=== PATIENT | female | born 1970 | race Caucasian/White ===

== ENCOUNTER → 2016-05-24 | Outpatient (CLI) | payer OTHER ==
[~2016-05-24] MED LIST: MECL1TAB42 PO; OXYC-57 PO
--- NOTE | 2016-05-24 12:37 | MAMMOGRAPHY REPORT ---
BILATERAL DIGITAL DIAGNOSTIC MAMMOGRAM TOMOSYNTHESIS WITH CAD AND TARGETED LEFT ULTRASOUND: 7 CLINICAL HISTORY: Interval follow-up of left breast masses. TECHNIQUE: Breast tomosynthesis in addition to standard 2D mammography was performed. Current study was also evaluated with a Computer Aided Detection (CAD) system. Bilateral CC and MLO 2-D and dustin synthesis images were obtained. COMPARISON: Comparison is made to exams dated: 11/22/2015 ultrasound, 11/22/2015 mammogram, 05/24/2015 mammogram, 05/24/2015 ultrasound, 05/11/2015 mammogram, and 01/13/2013 mammogram - [facility]. BREAST COMPOSITION: The tissue of both breasts is heterogeneously dense, which may obscure small ma sses. FINDINGS: There are no suspicious masses, calcifications, or areas of architectural distortion note d in either breast mammographically. Oval circumscribed benign appearing 2.6 cm mass in the left 12 :00 breast is again noted, and was shown to represent a benign cyst on a prior ultrasound exam. Sca ttered bilateral benign-appearing calcifications are not significantly changed. Targeted ultrasound was performed of the area of the previously seen left breast masses. In the lef t breast at 12:00, 1 cm from the nipple, again noted is an oval anechoic benign simple cyst measurin g 2.5 x 2.2 cm, which corresponds with the mammographic mass. Anterior to this cyst is an oval isoe choic parallel mass, which is stable in size and appearance dating back to the May 2015 exam, cu rrently measuring 10 x 4 x 9 mm, previously measuring 10 x 4 x 10 mm. The mass is probably benign g iven long-term stability and morphology. Multiple other anechoic benign cysts were noted in the lef t 11 12:00 breast. In the left 11:00 breast, 2 cm from the nipple, again noted is a round hypoechoic mass which is stab le dating back to the November 2015 exam, currently measuring 3 x 3 x 4 mm, previously measuring 4 x 3 x 4 mm. This is probably benign and likely represents a cyst. In the left breast at 8:00, 3 cm from the nipple, again noted is an oval circumscribed anechoic mass with a few internal septations, whic h is stable dating back to the November 2015 exam, currently measuring 6 x 3 x 3 mm, previously measurin g 6 x 2 x 4 mm. This is benign and compatible with a cyst. IMPRESSION: ACR-BI-RADS CATEGORY 3: PROBABLY BENIGN, TARGETED ULTRASOUND ACR-BI-RADS CATEGORY 3: VA OBABLY BENIGN 1. The isoechoic 10 mm mass in the left 12:00 breast abutting a simple cyst is stable dating back t o the May 2015 exam. The mass is probably benign, and recommend another follow-up ultrasound in one year to document 2 years of stability and therefore benignity. Routine bilateral mammograms wi ll be due at that time. 2. Round hypoechoic 4 mm mass in the left breast at 11:00 on ultrasound is also stable and is proba monet benign and likely represents a cyst. Recommend follow-up ultrasound in one year to confirm long er stability. The patient has been verbally notified of the results. Approximately 10% of breast cancers are not detected with mammography. A negative mammographic repor t should not delay biopsy if a clinically suggestive mass is present. Marjorie Jarrell M.D. ah/:05/24/2016 10:32:37 Wet End Tester: Hellen CORTEZ(R)(M), [facility] letter sent: Follow Up Recommended 3 BI-RADS Code: ACR-BI-RADS Category 3: Probably Benign Ultrasound BI-RADS: ACR-BI-RADS Category 3: P robably Benign
== END | disposition home or self-care (01) ==
LOC: C.MAMM 08:26
PROVIDERS: ATTEND Obstetrics & Gynecology
DX: N63 Unspecified lump in breast (principal); N60.02 Solitary cyst of left breast

== ENCOUNTER 2016-06-22 08:50 | Inpatient (IN) | payer OTHER ==
[~2016-06-22] VITALS: Ht 175.3 cm; Wt 88.9 kg
[2016-06-22] MEDS ORDERED: MECL1TAB42 PO (09:44)
[2016-06-22] MEDS ORDERED: ONDANSETRON INJ 2 MG/ML 2 ML VIAL IV STA (09:51)
[2016-06-22] MEDS ORDERED: ACETAMINOPHEN 500 MG TAB PO STA (09:51)
[2016-06-22] MEDS ORDERED: HYDROmorphone INJ 1 MG/ML SYR IV STA ×2 (09:51→13:19)
[2016-06-22] MEDS ORDERED: SODIUM CHLORIDE 0.9% 1000ML 1,000 ML IV STA (09:51)
[2016-06-22] MEDS ORDERED: KETOROLAC TROMETHAMINE 30 MG/ML VIAL IV STA (09:51)
[2016-06-22] MEDS ORDERED: MECLIZINE HCL 25 MG TAB PO ONE (09:52)
--- NOTE | 2016-06-22 10:15 | EMERGENCY ROOM VISIT NOTE ---
History Report prepared by Radha: Scotty Waters Under the Supervision of: Dr. Raymond Trammell M.D. First contact with patient: 09:31 Chief Complaint: ABDOMINAL PAIN Stated Complaint: BACK PAIN, PAIN IN RIBS, NAUSEA Nursing Triage Summary: Patient c/o pain between her shouler blades and midepigastric since 0230 this am, states she is nauseous and when she tries to eat or drink she feels nauseous and vomited after eating apples this am. History of Present Illness The patient is a 45 year old female who presents to the Emergency Room with complaints of persistent upper abdominal pain starting about 8 hours ago. The patient also complains of back pain and nausea. She had one episode of vomiting this morning. She has worsening symptoms with eating and drinking. The patient denies any history of similar abdominal pain or abdominal surgeries. The patient does not drink alcohol. She quit smoking cigarettes about 6-7 years ago. She denies any cough, runny nose, chest pain, or any other complaints. Source of History: patient Onset: about 8 hours ago Position: abdomen (upper) Timing: other (persistent) Associated Symptoms: + back pain, + nausea, + vomiting, No chest pain, No cough Review of Systems See HPI for pertinent positives & negatives. A total of 10 systems reviewed and were otherwise negative. Past Medical & Surgical Medical Problems: (1) Acute cholecystitis (2) Acute pharyngitis Family History Patient reports no known family medical history. Social History Smoking Status: Former Smoker Alcohol Use: none Marital Status: Occupation Status: employed Current/Historical Medications Scheduled PRN Meclizine Hcl (Meclizine Hcl), 1 TAB PO TID PRN for Dizziness or Vertigo Allergies Coded Allergies: Latex (Verified Allergy, Intermediate, Rash, 06/22/16) Penicillins (Verified Allergy, Unknown, rash, 06/22/16) Physical Exam Vital Signs Date Time Temp Pulse Resp B/P Pulse Ox O2 Delivery O2 Flow Rate FiO2 06/22/16 13:38 78 16 06/22/16 13:17 81 06/22/16 13:08 82 28 06/22/16 12:58 140/81 06/22/16 12:39 81 18 131/69 96 Room Air 06/22/16 12:38 84 16 131/69 06/22/16 10:38 73 19 06/22/16 10:33 88 16 06/22/16 10:33 88 16 06/22/16 10:28 130/70 06/22/16 10:22 80 06/22/16 10:20 80 15 06/22/16 09:48 87 16 127/76 98 Room Air 06/22/16 09:47 127/76 06/22/16 08:52 36.4 77 16 144/83 100 Room Air Physical Exam CONSTITUTIONAL: Mild painful distress HEENT: No icterus, moist mucous membranes NECK: No meningismus, trachea is midline. CARDIOVASCULAR: Regular rate, normal perfusion RESPIRATORY: Unlabored breathing. Clear to auscultation. GASTROINTESTINAL: Mod epigastric tenderness GENITOURINARY: No flank tenderness MUSCULOSKELETAL: Full range of motion NEUROLOGIC: No acute gross focal deficits. PSYCHIATRIC: Normal affect SKIN: Normal for ethnicity. Medical Decision & Procedures ER Provider Diagnostic Interpretation: X-ray results as stated below per interpretation by me and the radiologist. CHEST ONE VIEW PORTABLE CLINICAL HISTORY: epigastric pain COMPARISON STUDY: 08/11/2015 FINDINGS: The cardiac and mediastinal contours are normal. There is no evidence of focal pulmonary consolidation. There is no evidence of failure. No pleural effusions are visualized.[ There is a calcified granuloma at the right lung base. There is no free intraperitoneal air. IMPRESSION: No active disease in the chest. Electronically signed by: Denver Kay M.D. 06/22/2016 10:27 AM Dictated Date/Time: 06/22/2016 10:27 AM US results as stated below per my review and radiologist interpretation. Right upper quadrant ultrasound GALLBLADDER-ABD LIMITED CLINICAL HISTORY: epigastric pain --> back pain. Nausea. TECHNIQUE: Ultrasound COMPARISON STUDY: None FINDINGS: A combination of a small gallstones and sludge in the gallbladder neck as well as posterior fundal region. Gallbladder wall is top limits normal 3 mm. No evidence for abnormal pericholecystic fluid. Liver is uniform throughout. Pancreas is unremarkable. Common bile that measures 4 mm. Right kidney is negative for hydronephrosis. IMPRESSION: Combination of sludge and small gallstones within the gallbladder. Normal caliber bile ducts. Electronically signed by: Ayaan Gabriel M.D. 06/22/2016 11:25 AM Dictated Date/Time: 06/22/2016 11:23 AM Laboratory Results 06/22/16 10:00 Red Blood Count 4.51, Mean Corpuscular Volume 88.5, Mean Corpuscular Hemoglobin 31.0, Mean Corpuscular Hemoglobin Concent 35.1, Mean Platelet Volume 10.5, Neutrophils (%) (Auto) 88.1, Lymphocytes (%) (Auto) 5.8, Monocytes (%) (Auto) 5.3, Eosinophils (%) (Auto) 0.4, Basophils (%) (Auto) 0.1, Neutrophils # (Auto) 14.33, Lymphocytes # (Auto) 0.94, Monocytes # (Auto) 0.87, Eosinophils # (Auto) 0.06, Basophils # (Auto) 0.02 06/22/16 10:00 Test 06/22/16 10:00 06/22/16 10:36 White Blood Count 16.27 K/uL (4.8-10.8) Red Blood Count 4.51 M/uL (4.2-5.4) Hemoglobin 14.0 g/dL (12.0-16.0) Hematocrit 39.9 % (37-47) Mean Corpuscular Volume 88.5 fL (80-100) Mean Corpuscular Hemoglobin 31.0 pg (25-34) Mean Corpuscular Hemoglobin Concent 35.1 g/dl (32-36) Platelet Count 208 K/uL (130-400) Mean Platelet Volume 10.5 fL (7.4-10.4) Neutrophils (%) (Auto) 88.1 % Lymphocytes (%) (Auto) 5.8 % Monocytes (%) (Auto) 5.3 % Eosinophils (%) (Auto) 0.4 % Basophils (%) (Auto) 0.1 % Neutrophils # (Auto) 14.33 K/uL (1.4-6.5) Lymphocytes # (Auto) 0.94 K/uL (1.2-3.4) Monocytes # (Auto) 0.87 K/uL (0.11-0.59) Eosinophils # (Auto) 0.06 K/uL (0-0.5) Basophils # (Auto) 0.02 K/uL (0-0.2) RDW Standard Deviation 41.7 fL (36.4-46.3) RDW Coefficient of Variation 12.8 % (11.5-14.5) Immature Granulocyte % (Auto) 0.3 % Immature Granulocyte # (Auto) 0.05 K/uL (0.00-0.02) Anion Gap 9.0 mmol/L (3-11) Est Creatinine Clear Calc Drug Dose 93.9 ml/min Estimated GFR () 90.7 Estimated GFR (Non- 78.2 BUN/Creatinine Ratio 14.5 (10-20) Calcium Level 8.9 mg/dl (8.5-10.1) Total Bilirubin 0.5 mg/dl (0.2-1) Direct Bilirubin mg/dl (0-0.2) Aspartate Amino Transf (AST/SGOT) 480 U/L (15-37) Alanine Aminotransferase (ALT/SGPT) 233 U/L (12-78) Alkaline Phosphatase 62 U/L (45-117) Troponin I < 0.015 ng/ml (0-0.045) Total Protein 7.4 gm/dl (6.4-8.2) Albumin 4.1 gm/dl (3.4-5.0) Lipase 197 U/L (73-393) Chemistry Specimen Hemolysis Prothrombin Time 11.1 SECONDS (9.0-12.0) Prothromb Time International Ratio 1.0 (0.9-1.1) Activated Partial Thromboplast Time 26.3 SECONDS (21.0-31.0) Partial Thromboplastin Ratio 1.0 Labs reviewed by ED physician. Medications Administered Medications (Trade) Dose Ordered Sig/Patti Route Start Time Stop Time Status Last Admin Dose Admin Acetaminophen 1000 mg 1,000 mg NOW STAT PO 06/22/16 09:51 06/22/16 09:54 DC 06/22/16 10:12 1,000 MG Sodium Chloride (Nss 1000ml) 1,000 ml @ 0 mls/hr Q0M STAT IV 06/22/16 09:51 06/22/16 09:54 DC 06/22/16 10:13 999 MLS/HR Ondansetron HCl (Zofran Inj) 4 mg NOW STAT IV 06/22/16 09:51 06/22/16 09:54 DC 06/22/16 10:12 4 MG Ketorolac Tromethamine (Toradol Inj) 30 mg NOW STAT IV 06/22/16 09:51 06/22/16 09:54 DC 06/22/16 10:12 30 MG Hydromorphone HCl (Dilaudid Inj) 1 mg PRN STAT IV 06/22/16 09:51 06/22/16 09:54 DC 06/22/16 10:12 1 MG Hydromorphone HCl (Dilaudid Inj) 1 mg PRN STAT IV 06/22/16 13:19 06/22/16 13:20 DC 06/22/16 13:50 1 MG Ondansetron HCl (Zofran Inj) 4 mg Q4H PRN IV 06/22/16 14:00 07/22/16 13:59 06/22/16 15:39 4 MG ECG Indication: abdominal pain Rate (beats per minute): 77 Rhythm: sinus rhythm Findings: nonspecific-ST abn, no ectopy, other (normal axis) ED Course 930: Past medical records reviewed. The patient was evaluated in room B02. A complete history and physical examination was performed. 0951: Dilaudid Inj 1 mg IV, Toradol Inj 30 mg IV, Zofran Inj 4 mg IV, Sodium Chloride 1000 ml @ 0 mls/hr Wide Open IV, Tylenol Tab 1000 mg PO 1257: I discussed the patient's case with Dr. Solis, general surgeon with [facility]. 1319: Dilaudid Inj 1 mg IV 1341: Dr. Solis recommended hospitalizing the patient. 1353: Upon reexamination the patient is resting comfortably. I discussed results and treatment plan with the patient. She verbalizes agreement and understanding. The patient will be evaluated for further management. Medical Decision Differential diagnosis includes but is not limited to cholecystitis, pancreatitis, GERD. 75-year-old presents into the emergency room for evaluation of several hours of epigastric pain and nausea, made especially worse with eating. Evaluation concerning for cholecystitis. Evaluated by surgeon in the emergency room and patient admitted. Consults Time Called: 1254 Consulting Physician: Dr. Solis, general surgeon with [facility] Returned Call: [phone] I discussed the patient's case with Dr. Solis, general surgeon with [facility]. Impression Primary Impression: Cholecystitis Scribe Attestation The scribe's documentation has been prepared under my direction and personally reviewed by me in its entirety. I confirm that the note above accurately reflects all work, treatment, procedures, and medical decision making performed by me. Departure Information Dispostion Being Evaluated By Surgeon Jonathan Madsen M.D. (PCP) Patient Instructions [facility]
[2016-06-22 10:18] LABS: BASO % 0.1 %; BASO ABS # 0.02 K/uL (0-0.2); COMPLETE YES; EOS % 0.4 %; HEMATOCRIT 39.9 % (37-47); IG% 0.3 %; LYMPH % 5.8 %; LYMPH ABS # 0.94 K/uL (1.2-3.4); MEAN CELL VOLUME 88.5 fL (80-100); MEAN CORPUSCULAR HGB CONC 35.1 g/dl (32-36); MEAN PLATELET VOLUME 10.5 fL (7.4-10.4); MONO % 5.3 %; NEUT % 88.1 %; PLATELET COUNT 208 K/uL (130-400); RED BLOOD COUNT 4.51 M/uL (4.2-5.4); WHITE BLOOD COUNT 16.27 K/uL (4.8-10.8)
--- NOTE | 2016-06-22 10:28 | DIAGNOSTIC IMAGING REPORT ---
CHEST ONE VIEW PORTABLE CLINICAL HISTORY: epigastric pain COMPARISON STUDY: 08/11/2015 FINDINGS: The cardiac and mediastinal contours are normal. There is no evidence of focal pulmonary consolidation. There is no evidence of failure. No pleural effusions are visualized.[ There is a calcified granuloma at the right lung base. There is no free intraperitoneal air. IMPRESSION: No active disease in the chest. Electronically signed by: Denver Kay M.D. 06/22/2016 10:27 AM Dictated Date/Time: 06/22/2016 10:27 AM
[2016-06-22 10:45] LABS: ALKALINE PHOSPHATASE 62 U/L (45-117); ALT/SGPT 233 U/L (12-78); AST/SGOT 480 U/L (15-37); BLOOD UREA NITROGEN 13 mg/dl (7-18); BUN/CREATININE RATIO 14.5 (10-20); CALCIUM 8.9 mg/dl (8.5-10.1); CARBON DIOXIDE 24 mmol/L (21-32); CHLORIDE 107 mmol/L (98-107); CREATININE 0.88 mg/dl (0.60-1.20); GLUCOSE 96 mg/dl (70-99); POTASSIUM 3.9 mmol/L (3.5-5.1); SODIUM 140 mmol/L (136-145)
[2016-06-22 11:11] LABS: PROTHROMBIN TIME (PATIENT) 11.1 SECONDS (9.0-12.0)
--- NOTE | 2016-06-22 11:26 | DIAGNOSTIC IMAGING REPORT ---
Right upper quadrant ultrasound GALLBLADDER-ABD LIMITED CLINICAL HISTORY: epigastric pain --> back pain. Nausea. TECHNIQUE: Ultrasound COMPARISON STUDY: None FINDINGS: A combination of a small gallstones and sludge in the gallbladder neck as well as posterior fundal region. Gallbladder wall is top limits normal 3 mm. No evidence for abnormal pericholecystic fluid. Liver is uniform throughout. Pancreas is unremarkable. Common bile that measures 4 mm. Right kidney is negative for hydronephrosis. IMPRESSION: Combination of sludge and small gallstones within the gallbladder. Normal caliber bile ducts. Electronically signed by: Ayaan Gabriel M.D. 06/22/2016 11:25 AM Dictated Date/Time: 06/22/2016 11:23 AM
--- NOTE | 2016-06-22 13:53 | History and Physical ---
History & Physical Date & Time of Service: Jun 22, 2016 at 13:43 Chief Complaint: Back Pain, Pain In Ribs, Nausea Primary Care Physician: Jonathan Rush M.D. History of Present Illness Source: patient, family pt is a 45 year old female who presents with 8 hours history RUQ pain with nausea and vomiting, the pain is located at RUQ and radiate to back, pt has no chest pain, pt shirlene diarrhea, no fever. Past Medical/Surgical History Medical Problems: (1) Acute pharyngitis Status: Resolved Family History Patient reports no known family medical history. Social History Smoking Status: Former Smoker Alcohol Use: occasionally Drug Use: none Marital Status: Housing status: lives with family Occupational Status: employed Multi-Drug Resistant Organisms History of MDRO: No Allergies Coded Allergies: Latex (Verified Allergy, Intermediate, Rash, 06/22/16) Penicillins (Verified Allergy, Unknown, rash, 06/22/16) Home Medications Scheduled PRN Meclizine Hcl (Meclizine Hcl), 1 TAB PO TID PRN for Dizziness or Vertigo Review of Systems Constitutional: No chills, No fatigue, No fever, No problem reported, No sweats , No weakness, No weight loss Eyes: No diplopia, No discharge, No eye pain, No problem reported, No redness, No worsening of vision ENT: + tinnitus Respiratory: No cough, No dyspnea at rest, No dyspnea on exertion, No hemoptysis, No problem reported, No shortness of breath, No sputum, No wheezing Cardiovascular: No PND, No chest pain, No claudication, No edema, No orthopnea , No palpitations, No problem reported Abdomen: + nausea, + pain, + vomiting Musculoskeletal: No calf pain, No joint pain, No muscle pain, No problem reported, No swelling Genitourinary - Female: No dysmenorrhea, No dysuria, No hematuria, No menorrhagia, No metrorrhagia, No , No problem reported, No rash, No urinary frequency, No urinary incontinence, No urinary retention, No urinary urgency, No vaginal bleeding, No vaginal discharge, No vaginal itching, No vulvodynia Neurologic: No balance problems, No memory loss, No numbness/tingling, No paralysis, No problem reported, No vertigo, No weakness Psychiatric: No anhedonism, No anxiety, No depression symptoms, No insomnia, No problem reported, No substance abuse Endocrine: No excessive thirst, No excessive urination, No fatigue, No problem reported Hematologic / Lymphatic: No abnormal bleeding/bruising, No clotting problems, No night sweats, No problem reported, No swollen lymph nodes Physical Exam Vital Signs Date Time Temp Pulse Resp B/P Pulse Ox O2 Delivery O2 Flow Rate FiO2 06/22/16 13:17 81 06/22/16 12:39 81 18 131/69 96 Room Air 06/22/16 10:33 88 16 06/22/16 10:33 88 16 06/22/16 10:28 130/70 06/22/16 10:22 80 06/22/16 10:20 80 15 06/22/16 09:48 87 16 127/76 98 Room Air 06/22/16 09:47 127/76 06/22/16 08:52 36.4 77 16 144/83 100 Room Air General Appearance: WD/WN Head: normocephalic Eyes: normal inspection ENT: normal ENT inspection Neck: supple Respiratory/Chest: chest non-tender, lungs clear, normal breath sounds Cardiovascular: regular rate, rhythm, no edema, no gallop, no JVD, no murmur Abdomen/GI: normal bowel sounds, soft, no organomegaly, no pulsatile mass, + tenderness Back: normal inspection, no CVA tenderness Extremities/Musculoskelatal: normal inspection, no calf tenderness, normal capillary refill Neurologic/Psych: insurance verification clerk II-XII nml as tested, no motor/sensory deficits, alert, normal mood/affect Skin: normal color, warm/dry, no rash tenderness at RUQ, no rebound pain, Diagnostics Laboratory Results Results Past 24 Hours Test 06/22/16 09:51 06/22/16 10:00 06/22/16 10:36 Range/Units White Blood Count 16.27 4.8-10.8 K/uL Red Blood Count 4.51 4.2-5.4 M/uL Hemoglobin 14.0 12.0-16.0 g/dL Hematocrit 39.9 37-47 % Mean Corpuscular Volume 88.5 80-100 fL Mean Corpuscular Hemoglobin 31.0 25-34 pg Mean Corpuscular Hemoglobin Concent 35.1 32-36 g/dl Platelet Count 208 130-400 K/uL Mean Platelet Volume 10.5 7.4-10.4 fL Neutrophils (%) (Auto) 88.1 % Lymphocytes (%) (Auto) 5.8 % Monocytes (%) (Auto) 5.3 % Eosinophils (%) (Auto) 0.4 % Basophils (%) (Auto) 0.1 % Neutrophils # (Auto) 14.33 1.4-6.5 K/uL Lymphocytes # (Auto) 0.94 1.2-3.4 K/uL Monocytes # (Auto) 0.87 0.11-0.59 K/uL Eosinophils # (Auto) 0.06 0-0.5 K/uL Basophils # (Auto) 0.02 0-0.2 K/uL RDW Standard Deviation 41.7 36.4-46.3 fL RDW Coefficient of Variation 12.8 11.5-14.5 % Immature Granulocyte % (Auto) 0.3 % Immature Granulocyte # (Auto) 0.05 0.00-0.02 K/uL Sodium Level 140 136-145 mmol/L Potassium Level 3.9 3.5-5.1 mmol/L Chloride Level 107 98-107 mmol/L Carbon Dioxide Level 24 21-32 mmol/L Anion Gap 9.0 3-11 mmol/L Blood Urea Nitrogen 13 7-18 mg/dl Creatinine 0.88 0.60-1.20 mg/dl Est Creatinine Clear Calc Drug Dose 93.9 ml/min Estimated GFR () 90.7 Estimated GFR (Non- 78.2 BUN/Creatinine Ratio 14.5 10-20 Random Glucose 96 70-99 mg/dl Calcium Level 8.9 8.5-10.1 mg/dl Total Bilirubin 0.5 0.2-1 mg/dl Direct Bilirubin 0-0.2 mg/dl Aspartate Amino Transf (AST/SGOT) 480 15-37 U/L Alanine Aminotransferase (ALT/SGPT) 233 12-78 U/L Alkaline Phosphatase 62 45-117 U/L Troponin I < 0.015 0-0.045 ng/ml Total Protein 7.4 6.4-8.2 gm/dl Albumin 4.1 3.4-5.0 gm/dl Lipase 197 73-393 U/L Chemistry Specimen Hemolysis Prothrombin Time 11.1 9.0-12.0 SECONDS Prothromb Time International Ratio 1.0 0.9-1.1 Activated Partial Thromboplast Time 26.3 21.0-31.0 SECONDS Partial Thromboplastin Ratio 1.0 Diagnostic Radiology U/S-IMPRESSION: Combination of sludge and small gallstones within the gallbladder. Normal caliber bile ducts. CXR normal Impression Assessment and Plan IMP acute cholecystitis, cholelithiasis Plan: admit to Hospital IV fluid, Iv antibiotic contorl pain, pt will have laparoscopic cholecystectomy, possible open or cholangiogram on Saturday, D/W benefits, risks and alternatives of the procedure, ryann risks- infection, bleeding, injury CBD, bowel, may need ERCP, incisional hernia, , pt and her family member understood, they agree with ryann plan, I answered all questions,
[2016-06-22] MEDS ORDERED: OXYCODONE/ACETAMINOPHEN 5-325 TAB PO PRN (14:00)
[2016-06-22] MEDS ORDERED: HYDROmorphone INJ 1 MG/ML SYR IV PRN (14:00)
[2016-06-22 14:21] VITALS: O2SAT 96; Ht 175.3 cm; Wt 88.9 kg
[2016-06-22] MEDS: D5W AND 1/2NSS + 20MEQ KCL 1,000 ML IV SCH (15:26)
[2016-06-22] MEDS: CIPROFLOXACIN / D5W 400 MG in PREMIXED IN D5W 200 ML IV SCH (15:28)
[2016-06-22 15:30] VITALS: BP 127/81; PULSE 64; TEMP 36.4; O2SAT 97
[2016-06-22] MEDS: ONDANSETRON INJ 2 MG/ML 2 ML VIAL IV PRN (15:39)
[2016-06-22] MEDS: METRONIDAZOLE / NSS 500 MG in PREMIXED NSS 100 ML IV SCH ×2 (17:23→23:44)
[2016-06-22 20:07] LABS: URINE APPEARANCE CLOUDY (CLEAR); URINE COLOR DK YELLOW; URINE EPITHELIAL CELL AUTO >30 /lpf (0-5); URINE NITRITE NEG (NEG); URINE PH 5.5 (4.5-7.5); URINE SPECIFIC GRAVITY 1.024 (1.000-1.030); UROBILINOGEN NEG (NEG)
[2016-06-22 20:08] LABS: MANUAL MICROSCOPIC REQUIRED? NO; REVIEW REQ? NO; URINE BILIRUBIN 1+ (NEG)
[2016-06-22 22:50] VITALS: BP 125/77; PULSE 81; TEMP 36.4; O2SAT 97
[2016-06-23] MEDS: CIPROFLOXACIN / D5W 400 MG in PREMIXED IN D5W 200 ML IV SCH ×2 (03:53→15:24)
[2016-06-23] MEDS: D5W AND 1/2NSS + 20MEQ KCL 1,000 ML IV SCH ×2 (03:53→17:15)
[2016-06-23 07:06] VITALS: BP 115/65; PULSE 71; TEMP 36.5; O2SAT 98
--- NOTE | 2016-06-23 07:53 | Surgery Progress Note ---
Surgery Progress Note Date of Service Jun 23, 2016. Subjective + feeling well pt is doing better, less abdominal pain, no N/V, Objective Vital Signs: Date Time Temp Pulse Resp B/P Pulse Ox O2 Delivery O2 Flow Rate FiO2 06/23/16 07:06 36.5 71 17 115/65 98 Room Air 06/22/16 23:30 Room Air 06/22/16 22:50 36.4 81 16 125/77 97 Room Air 06/22/16 16:05 Room Air 06/22/16 15:30 36.4 64 18 127/81 97 Room Air 06/22/16 15:07 Room Air 06/22/16 14:21 96 Room Air 06/22/16 13:38 78 16 06/22/16 13:17 81 06/22/16 13:08 82 28 06/22/16 12:58 140/81 06/22/16 12:39 81 18 131/69 96 Room Air 06/22/16 12:38 84 16 131/69 06/22/16 10:38 73 19 06/22/16 10:33 88 16 06/22/16 10:33 88 16 06/22/16 10:28 130/70 06/22/16 10:22 80 06/22/16 10:20 80 15 06/22/16 09:48 87 16 127/76 98 Room Air 06/22/16 09:47 127/76 06/22/16 08:52 36.4 77 16 144/83 100 Room Air General Appearance: WD/WN Head: normocephalic Neck: supple, no JVD Respiratory/Chest: chest non-tender, lungs clear Cardiovascular: regular rate, rhythm, no edema, no gallop, no JVD Abdomen: normal bowel sounds, + tenderness (tendernesss at RUQ, no rebound pain , ) Incision(s): clean, dry, intact Extremities: normal range of motion, non-tender, normal inspection Laboratory Results: Results Past 24 Hours Test 06/22/16 10:00 06/22/16 10:36 06/22/16 19:20 06/23/16 04:44 Range/Units White Blood Count 16.27 4.8-10.8 K/uL Red Blood Count 4.51 4.2-5.4 M/uL Hemoglobin 14.0 12.0-16.0 g/dL Hematocrit 39.9 37-47 % Mean Corpuscular Volume 88.5 80-100 fL Mean Corpuscular Hemoglobin 31.0 25-34 pg Mean Corpuscular Hemoglobin Concent 35.1 32-36 g/dl Platelet Count 208 130-400 K/uL Mean Platelet Volume 10.5 7.4-10.4 fL Neutrophils (%) (Auto) 88.1 % Lymphocytes (%) (Auto) 5.8 % Monocytes (%) (Auto) 5.3 % Eosinophils (%) (Auto) 0.4 % Basophils (%) (Auto) 0.1 % Neutrophils # (Auto) 14.33 1.4-6.5 K/uL Lymphocytes # (Auto) 0.94 1.2-3.4 K/uL Monocytes # (Auto) 0.87 0.11-0.59 K/uL Eosinophils # (Auto) 0.06 0-0.5 K/uL Basophils # (Auto) 0.02 0-0.2 K/uL RDW Standard Deviation 41.7 36.4-46.3 fL RDW Coefficient of Variation 12.8 11.5-14.5 % Immature Granulocyte % (Auto) 0.3 % Immature Granulocyte # (Auto) 0.05 0.00-0.02 K/uL Sodium Level 140 136-145 mmol/L Potassium Level 3.9 3.5-5.1 mmol/L Chloride Level 107 98-107 mmol/L Carbon Dioxide Level 24 21-32 mmol/L Anion Gap 9.0 3-11 mmol/L Blood Urea Nitrogen 13 7-18 mg/dl Creatinine 0.88 0.60-1.20 mg/dl Est Creatinine Clear Calc Drug Dose 93.9 ml/min Estimated GFR () 90.7 Estimated GFR (Non- 78.2 BUN/Creatinine Ratio 14.5 10-20 Random Glucose 96 70-99 mg/dl Calcium Level 8.9 8.5-10.1 mg/dl Total Bilirubin 0.5 0.2-1 mg/dl Direct Bilirubin 0-0.2 mg/dl Aspartate Amino Transf (AST/SGOT) 480 15-37 U/L Alanine Aminotransferase (ALT/SGPT) 233 12-78 U/L Alkaline Phosphatase 62 45-117 U/L Troponin I < 0.015 0-0.045 ng/ml Total Protein 7.4 6.4-8.2 gm/dl Albumin 4.1 3.4-5.0 gm/dl Lipase 197 73-393 U/L Chemistry Specimen Hemolysis Prothrombin Time 11.1 9.0-12.0 SECONDS Prothromb Time International Ratio 1.0 0.9-1.1 Activated Partial Thromboplast Time 26.3 21.0-31.0 SECONDS Partial Thromboplastin Ratio 1.0 Urine Color DK YELLOW Urine Appearance CLOUDY CLEAR Urine pH 5.5 4.5-7.5 Urine Specific [place] 1.024 1.000-1.030 Urine Protein NEG NEG Urine Glucose (UA) NEG NEG Urine Ketones NEG NEG Urine Occult Blood NEG NEG Urine Nitrite NEG NEG Urine Bilirubin 1+ NEG Urine Urobilinogen NEG NEG Urine Leukocyte Esterase MODERATE NEG Urine WBC (Auto) 10-30 0-5 /hpf Urine RBC (Auto) 0-4 0-4 /hpf Urine Hyaline Casts (Auto) 5-10 0-5 /lpf Urine Epithelial Cells (Auto) >30 0-5 /lpf Urine Bacteria (Auto) 2+ NEG Assessment & Plan IMP acute cholecystitis, cholelithiasis continue treatment pt will have laparoscopic cholecystectomy possible open or cholangiogram on Saturday D/W benefits, risks and alternatives of the procedure, the risks- infection, bleeding, injury CBD, bowel, may need ERCP, incisional hernia, , pt understood, she agrees with the plan, I answered all questions, full liquids
[2016-06-23 08:13] LABS: BASO % 0.4 %; BASO ABS # 0.02 K/uL (0-0.2); COMPLETE YES; EOS % 2.7 %; HEMATOCRIT 37.1 % (37-47); IG% 0.2 %; LYMPH ABS # 1.17 K/uL (1.2-3.4); MEAN CELL VOLUME 89.8 fL (80-100); MEAN CORPUSCULAR HEMOGLOBIN 30.8 pg (25-34); MEAN CORPUSCULAR HGB CONC 34.2 g/dl (32-36); MEAN PLATELET VOLUME 10.6 fL (7.4-10.4); MONO % 7.8 %; NEUT % 64.9 %; PLATELET COUNT 183 K/uL (130-400); RED BLOOD COUNT 4.13 M/uL (4.2-5.4); WHITE BLOOD COUNT 4.87 K/uL (4.8-10.8)
[2016-06-23 08:57] VITALS: BP 118/82; PULSE 72; TEMP 36.4; O2SAT 96
[2016-06-23] MEDS: METRONIDAZOLE / NSS 500 MG in PREMIXED NSS 100 ML IV SCH ×3 (09:17→23:16)
[2016-06-23 09:37] VITALS: O2SAT 96
[2016-06-23] MEDS ORDERED: NURSING VERBAL MED ORDER ONE (12:00)
[2016-06-23 12:02] VITALS: BP 128/82; PULSE 62; TEMP 36.5; O2SAT 98
[2016-06-23 16:09] VITALS: BP 116/82; PULSE 62; TEMP 36.8; O2SAT 96
[2016-06-23] MEDS ORDERED: ACETAMINOPHEN 500 MG TAB PO PRN (17:00)
[2016-06-23 22:58] VITALS: BP 132/79; PULSE 70; TEMP 36.5; O2SAT 98
[2016-06-24] MEDS: D5W AND 1/2NSS + 20MEQ KCL 1,000 ML IV SCH ×3 (03:54→21:29)
[2016-06-24] MEDS: CIPROFLOXACIN / D5W 400 MG in PREMIXED IN D5W 200 ML IV SCH (03:54)
[2016-06-24 06:25] LABS: BASO % 0.7 %; BASO ABS # 0.04 K/uL (0-0.2); COMPLETE YES; EOS % 4.8 %; HEMATOCRIT 38.5 % (37-47); IG% 0.2 %; LYMPH % 36.7 %; LYMPH ABS # 2.16 K/uL (1.2-3.4); MEAN CELL VOLUME 90.8 fL (80-100); MEAN CORPUSCULAR HEMOGLOBIN 30.4 pg (25-34); MEAN CORPUSCULAR HGB CONC 33.5 g/dl (32-36); MEAN PLATELET VOLUME 10.6 fL (7.4-10.4); MONO % 10.4 %; NEUT % 47.2 %; PLATELET COUNT 193 K/uL (130-400); RED BLOOD COUNT 4.24 M/uL (4.2-5.4); WHITE BLOOD COUNT 5.89 K/uL (4.8-10.8)
[2016-06-24 07:13] VITALS: BP 112/70; PULSE 72; TEMP 36.7; O2SAT 98
[2016-06-24 07:22] LABS: ALB/GLOB RATIO 1.1 (0.9-2); BUN/CREATININE RATIO 6.7 (10-20); CALCIUM 8.7 mg/dl (8.5-10.1); CREATININE 0.86 mg/dl (0.60-1.20); POTASSIUM 3.9 mmol/L (3.5-5.1)
--- NOTE | 2016-06-24 09:27 | Surgery Progress Note ---
Surgery Progress Note Date of Service Jun 24, 2016. Subjective + feeling well pt is doing better, less abdominal pain, no N/V, Objective Vital Signs: Date Time Temp Pulse Resp B/P Pulse Ox O2 Delivery O2 Flow Rate FiO2 06/24/16 07:13 36.7 72 19 112/70 98 Room Air 06/24/16 00:17 Room Air 06/23/16 22:58 36.5 70 16 132/79 98 Room Air 06/23/16 16:09 36.8 62 18 116/82 96 Room Air 06/23/16 15:15 Room Air 06/23/16 12:02 36.5 62 16 128/82 98 Room Air 06/23/16 09:37 96 Room Air General Appearance: WD/WN Head: normocephalic Neck: supple, no JVD Respiratory/Chest: chest non-tender, lungs clear Cardiovascular: regular rate, rhythm, no edema, no JVD Abdomen: normal bowel sounds, non tender, non distended, soft Extremities: normal range of motion, non-tender, normal inspection Laboratory Results: Results Past 24 Hours Test 06/24/16 05:40 Range/Units White Blood Count 5.89 4.8-10.8 K/uL Red Blood Count 4.24 4.2-5.4 M/uL Hemoglobin 12.9 12.0-16.0 g/dL Hematocrit 38.5 37-47 % Mean Corpuscular Volume 90.8 80-100 fL Mean Corpuscular Hemoglobin 30.4 25-34 pg Mean Corpuscular Hemoglobin Concent 33.5 32-36 g/dl Platelet Count 193 130-400 K/uL Mean Platelet Volume 10.6 7.4-10.4 fL Neutrophils (%) (Auto) 47.2 % Lymphocytes (%) (Auto) 36.7 % Monocytes (%) (Auto) 10.4 % Eosinophils (%) (Auto) 4.8 % Basophils (%) (Auto) 0.7 % Neutrophils # (Auto) 2.79 1.4-6.5 K/uL Lymphocytes # (Auto) 2.16 1.2-3.4 K/uL Monocytes # (Auto) 0.61 0.11-0.59 K/uL Eosinophils # (Auto) 0.28 0-0.5 K/uL Basophils # (Auto) 0.04 0-0.2 K/uL RDW Standard Deviation 43.2 36.4-46.3 fL RDW Coefficient of Variation 13.1 11.5-14.5 % Immature Granulocyte % (Auto) 0.2 % Immature Granulocyte # (Auto) 0.01 0.00-0.02 K/uL Sodium Level 144 136-145 mmol/L Potassium Level 3.9 3.5-5.1 mmol/L Chloride Level 108 98-107 mmol/L Carbon Dioxide Level 28 21-32 mmol/L Anion Gap 8.0 3-11 mmol/L Blood Urea Nitrogen 6 7-18 mg/dl Creatinine 0.86 0.60-1.20 mg/dl Est Creatinine Clear Calc Drug Dose 96.1 ml/min Estimated GFR () 93.2 Estimated GFR (Non- 80.4 BUN/Creatinine Ratio 6.7 10-20 Random Glucose 95 70-99 mg/dl Calcium Level 8.7 8.5-10.1 mg/dl Total Bilirubin 0.5 0.2-1 mg/dl Aspartate Amino Transf (AST/SGOT) 263 15-37 U/L Alanine Aminotransferase (ALT/SGPT) 636 12-78 U/L Alkaline Phosphatase 112 45-117 U/L Total Protein 6.4 6.4-8.2 gm/dl Albumin 3.4 3.4-5.0 gm/dl Globulin 3.0 2.5-4.0 gm/dl Albumin/Globulin Ratio 1.1 0.9-2 Amylase Level 41 25-115 U/L Assessment & Plan IMP acute cholecystitis, cholelithiasis continue treatment, stop flagyl, regular diet, npo from mn pt will have laparoscopic cholecystectomy possible open or cholangiogram on Saturday benefits, risks and alternatives of the procedure, the risks- infection, bleeding, injury CBD, bowel, may need ERCP, incisional hernia, , pt understood, she agrees with the plan, I answered all questions, IMP acute cholecystitis, cholelithiasis continue treatment pt will have laparoscopic cholecystectomy possible open or cholangiogram on Saturday benefits, risks and alternatives of the procedure, the risks- infection, bleeding, injury CBD, bowel, may need ERCP, incisional hernia, , pt understood, she agrees with the plan, I answered all questions,
[2016-06-24] MEDS ORDERED: NURSING VERBAL MED ORDER ONE (09:30)
[2016-06-24 15:05] VITALS: BP 123/71; PULSE 79; TEMP 36.6; O2SAT 97
[2016-06-24 22:55] VITALS: BP 106/70; PULSE 80; TEMP 36.6; O2SAT 99
[2016-06-25] VITALS (7 sets, daily range): BP systolic 125–131; BP diastolic 66–82; PULSE 63–82; TEMP 36.3–36.9; O2SAT 96–99
[2016-06-25] MEDS: D5W AND 1/2NSS + 20MEQ KCL 1,000 ML IV SCH (05:31)
--- NOTE | 2016-06-25 10:09 | Surgery Progress Note ---
Surgery Progress Note Date of Service Jun 25, 2016. Subjective + feeling well pt is doing better, less abdominal pain, no N/V, Objective Vital Signs: Date Time Temp Pulse Resp B/P Pulse Ox O2 Delivery O2 Flow Rate FiO2 06/25/16 07:50 36.5 74 14 125/66 97 Room Air 06/25/16 07:05 Room Air 06/24/16 23:15 Room Air 06/24/16 22:55 36.6 80 16 106/70 99 Room Air 06/24/16 16:00 Room Air 06/24/16 15:05 36.6 79 16 123/71 97 Room Air General Appearance: WD/WN Head: normocephalic Neck: supple, no adenopathy, no JVD Respiratory/Chest: chest non-tender, lungs clear Cardiovascular: regular rate, rhythm, no edema, no gallop, no JVD Abdomen: normal bowel sounds, non tender, non distended, soft Extremities: normal range of motion, non-tender, normal inspection Assessment & Plan IMP acute cholecystitis, cholelithiasis pt will have laparoscopic cholecystectomy possible open or cholangiogram today. D/W benefits, risks and alternatives of the procedure, the risks- infection, bleeding, injury CBD, bowel, may need ERCP, incisional hernia, , pt understood, she agrees with the plan, I answered all questions, I also gave pt post-op care instruction F/U 1 week, IMP acute cholecystitis, cholelithiasis continue treatment, stop flagyl, regular diet, npo from mn pt will have laparoscopic cholecystectomy possible open or cholangiogram on Saturday D/W benefits, risks and alternatives of the procedure, the risks- infection, bleeding, injury CBD, bowel, may need ERCP, incisional hernia, , pt understood, she agrees with the plan, I answered all questions,
[2016-06-25] MEDS ORDERED: BUPIVACAINE 0.5 % 5 MG/1 ML MPF 30ML VIAL ONE (13:37)
[2016-06-25] MEDS ORDERED: LIDOCAINE HCL 1% 20 ML VIAL ONE (13:37)
[2016-06-25] MEDS ORDERED: ROCURONIUM BROMIDE 10 MG/ML 5 ML VIAL ONE (13:42)
[2016-06-25] MEDS ORDERED: NEOSTIGMINE METHYLSULFATE 5 MG/5 ML SYR ONE (13:42)
[2016-06-25] MEDS ORDERED: LARYING-O-JET KIT (LTA) EXT ONE ×2 (13:42)
[2016-06-25] MEDS ORDERED: ONDANSETRON INJ 2 MG/ML 2 ML VIAL ONE (13:42)
[2016-06-25] MEDS ORDERED: PROPOFOL IV EMULSION 10 MG/ML 20 ML VIAL IV ONE (13:42)
[2016-06-25] MEDS ORDERED: DEXAMETHASONE SOD INJ 4 MG/ML VIAL ONE (13:42)
[2016-06-25] MEDS ORDERED: LIDOCAINE HCL 2% 2 ML VIAL (20MG/ML) ONE (13:42)
[2016-06-25] MEDS ORDERED: GLYCOPYRROLATE INJ 0.2 MG/ML VIAL ONE (13:42)
[2016-06-25] MEDS ORDERED: FENTANYL CITRATE INJ 50 MCG/1 ML 2 ML VIAL ONE ×2 (13:42→14:57)
[2016-06-25] MEDS ORDERED: MIDAZOLAM HCL 1 MG/ML 2ML VIAL ONE (13:42)
[2016-06-25] MEDS ORDERED: BACITRACIN OINT 15 GM TUBE ONE (13:43)
[2016-06-25] MEDS ORDERED: CIPROFLOXACIN 400MG / 200ML D5W ONE (13:56)
--- NOTE | 2016-06-25 14:00 | History & Physical Bridge Note ---
H&P Re-Evaluation Bridge Note: I have examined the patient, reviewed the History & Physical and in the interval since the performance of the History & Physical I have noted the following changes of clinical significance: No changes noted
[2016-06-25] MEDS ORDERED: EpHEDrine SULFATE INJ 50 MG/ML AMP IV PRN (14:15)
[2016-06-25] MEDS ORDERED: PHENYLEPHRINE 100MCG/ML 5ML SYR IV PRN (14:15)
[2016-06-25] MEDS ORDERED: ONDANSETRON INJ 2 MG/ML 2 ML VIAL IV PRN ×2 (14:15→15:30)
[2016-06-25] MEDS ORDERED: ATROPINE SULFATE 0.1 MG/ML 5ML SYR IV PRN (14:15)
[2016-06-25] MEDS ORDERED: HYDROmorphone INJ 2 MG/ML SYR/VIAL IV PRN (14:15)
[2016-06-25] MEDS ORDERED: BACITRACIN ZINC OINT TOP ONE (15:12)
[2016-06-25] MEDS ORDERED: MIX: 0.5% BUPIVICAINE 20ML/1% LIDO 20ML INJ ONE (15:13)
--- NOTE | 2016-06-25 15:28 | [facility] Post Operative Brief Note ---
Immediate Operative Summary Operative Date Jun 25, 2016. Pre-Operative Diagnosis Acute Cholecystitis, cholelithiasis Post-Operative Diagnosis Acute Cholecystitis, cholelithiasis Procedure(s) Performed Laparoscopic Cholecystectomy Surgeon Dr. Solis Pharmacy Services Representative Surgeon(s) surgical services coordinator Estimated Blood Loss 10ML Findings acute cholecystitis, cholelithiasis Fluids (cc crystalloids) 500ml Specimens A. Gallbladder Drains none Anesthesia general Complication(s) None Disposition Recovery Room / PACU
[2016-06-25] MEDS ORDERED: OXYCODONE/ACETAMINOPHEN 5-325 TAB PO PRN (15:30)
[2016-06-25] MEDS ORDERED: HYDROmorphone INJ 1 MG/ML SYR IV PRN (15:30)
[2016-06-25] MEDS ORDERED: OXYC-57 PO (15:31)
--- NOTE | 2016-06-25 15:37 | Anesthesiology Progress Note ---
Anesthesia Post Op Note Date & Time Jun 25, 2016 at 15:37 Vital Signs Pain Intensity: 4.0 Vital Signs Past 12 Hours Date Time Temp Pulse Resp B/P Pulse Ox O2 Delivery O2 Flow Rate FiO2 06/25/16 10:08 97 Room Air 06/25/16 07:50 36.5 74 14 125/66 97 Room Air 06/25/16 07:05 Room Air Notes Mental Status: alert / awake / arousable, participated in evaluation Pt Amnestic to Procedure: Yes Nausea / Vomiting: adequately controlled Pain: adequately controlled Airway Patency, RR, SpO2: stable & adequate BP & HR: stable & adequate Hydration State: stable & adequate Anesthetic Complications: no major complications apparent
--- NOTE | 2016-06-25 15:38 | Discharge Instructions ---
Discharge Instructions Admission Reason for Admission: Acute Cholecystitis Discharge Discharge Diagnosis / Problem: S/P laparoscopic cholecystectomy Discharge Goals Goal(s): Decrease discomfort, Improve function Activity Recommendations Activity Limitations: per Instructions/Follow-up section Lifting Limitations: no more than 25 pounds Exercise/Sports Limitations: gradually increase as tolerated May Resume Sexual Activity: when tolerated Shower/Bathe: may shower/bathe in 3 days Driving or Machine Use: resume 3 days after discharge . Instructions / Follow-Up Instructions / Follow-Up keep all dressing on for 4 days, she can take a shower on 06/29/2016. no driving while taking pain medicine, Follow up 1 week, Current Hospital Diet Patient's current hospital diet: Regular Diet Discharge Diet Recommended Diet: Regular Diet Procedures Procedures Performed: Laparoscopic Cholecystectomy Pending Studies Studies pending at discharge: no Medical Emergencies . Who to Call and When: Medical Emergencies: If at any time you feel your situation is an emergency, please call 911 immediately. . Non-Emergent Contact Non-Emergency issues call your: Primary Care Provider Call Non-Emergent contact if: you have a fever, temperature is above 100.5, your pain is not controlled, your pain is worsening, wound has increased drainage, wound has increased redness . "Provider Documentation" section prepared by Letitia Solis. VTE Core Measure Inpt VTE Proph given/why not?: SCD's
[2016-06-25] MEDS: ONDANSETRON INJ 2 MG/ML 2 ML VIAL IV PRN (15:54)
[2016-06-25] MEDS ORDERED: D5W AND 1/2NSS + 20MEQ KCL 1,000 ML IV SCH (16:00)
--- NOTE | 2016-06-25 19:44 | OPERATIVE REPORT ---
DATE OF OPERATION: 06/25/2016 PREOPERATIVE DIAGNOSES: Acute cholecystitis, cholelithiasis. POSTOPERATIVE DIAGNOSES: Same. OPERATION: Laparoscopic cholecystectomy. SURGEON: Dr. Letitia Solis. ANESTHESIA: General. ESTIMATED BLOOD LOSS: About 10 mL IV FLUIDS: 500 mL FINDINGS: Acute cholecystitis and cholelithiasis. COMPLICATION: None. INDICATION OF THE PROCEDURE: This is a 45-year-old female who presented to the ED with right upper quadrant pain. The patient had ultrasound showing acute cholecystitis and cholelithiasis. The patient was admitted to hospital for treatment of acute cholecystitis for a couple days and today we decided to take the patient to the OR to do laparoscopic cholecystectomy, possible open, possible cholangiogram. I did talk to the patient about the benefit and risks and alternate procedure. I indicated the risks may include but not limited such as bleeding, infection, injury to common bile duct, injury to bowel, may need ERCP, incisional hernia, even . The patient understands. She signed informed consent and I answered all questions. DETAILS OF PROCEDURE: We brought the patient to the OR, put the patient in the supine position. The patient received SCD on bilateral legs to prevent DVT. Also, the patient received 400 mg of Cipro IV for prophylactic antibiotic. The patient received general anesthesia without difficulty. The abdomen was prepped and draped in routine sterile fashion. After a timeout, I injected local anesthesia by using 1% lidocaine mixed with 0.5% Marcaine around the umbilical area. Then, I made a small incision just above the umbilicus, opened fascia and opened peritoneum under direct vision. I put a Gildardo trocar in, connected to CO2 to create pneumoperitoneum, flow rate at 6 liters per minute, pressure not more than 14 mmHg. Once we got a nice pneumoperitoneum, we put a 10 mm camera in, looked around the abdomen, showed normal finding of the stomach, small-bowel, large bowel, liver; however, the patient had acute cholecystitis with omentum covering the gallbladder, gallbladder wall had edema, was swollen. Then, we put another 3.5 mm trocar on the right upper quadrant. Once all trocars were in, we put a grasper in to hold the base of the gallbladder, put in the direction of the diaphragm, and then we put another grasper in to hold the pouch over the gallbladder for the latter exposure of the triangle of Calot. The cystic duct was identified and mobilized. Then, I put two 5 mm metal clips on the proximal cystic duct, 1 on the distal cystic duct. Then, I used scissors to transect the cystic duct and rechecked no bile leak. Then, the cystic artery was identified and mobilized. Then, I put two 5 mm metal clips on the proximal cystic artery, 1 on the distal cystic artery. Then, I used scissors to transect the cystic artery, rechecked no active bleeding. Then, I took down the gallbladder from the liver bed without difficulty. Rechecked no active bleeding, no leak. Then, we removed the gallbladder through the catch bag. Then, we reinserted Gildardo trocar in and created pneumoperitoneum again, rechecked the abdomen, no bile leak and no active bleeding from the liver bed. Then, we removed all trocars under direct vision, no active bleeding. The pneumoperitoneum was released. Then, using #1 Vicryl, closed the umbilical fascial layer by using [id number] x2, closed the subcutaneous layer by using 2-0 Vicryl, closed skin by using 4-0 Vicryl. Another 3.5 mm trocar site, I closed skin by using 4-0 Vicryl. We put the dressing on. The patient tolerated the procedure well. All the instrument, needle and sponge counts were correct x2 at the end of case. The patient transferred to recovery room in stable condition, and after procedure, I did talk to the patient's family member about the OR finding and procedure. They understood. Gave them postop care instruction. The gallbladder was sent to pathology. We will follow the patient in 1 week. I attest to the content of the Intraoperative Record and any orders documented therein. Any exceptions are noted below. SHOBHA
--- NOTE | 2016-06-26 07:19 | DISCHARGE SUMMARY ---
ADMITTING DIAGNOSES: Acute cholecystitis, cholelithiasis. DISCHARGE DIAGNOSIS: Same. OPERATION: Laparoscopic cholecystectomy. SURGEON: Dr. Letitia Solis. DETAIL OF DISCHARGE SUMMARY: This is a 45-year-old female who presented to the ED with right upper quadrant pain. The patient had ultrasound showed acute cholecystitis and the patient was admitted to the hospital for 2 days and gave the patient IV fluid, IV antibiotic, and control the pain. Today, we took the patient to the OR, we did a laparoscopic cholecystectomy. The patient tolerated the procedure well and after the procedure the patient transported to recovery room in stable condition. PHYSICAL EXAMINATION: VITAL SIGNS: Temperature is 96.7, heart rate is 77. The respiratory rate is 18. Blood pressure is 140/80. O2 saturation is 100% on 2 liter per minute. GENERAL: The patient is alert, awake, oriented x3. No distress. HEAD, EYES, EARS, NOSE, AND THROAT: No limitation. NEUROLOGIC: Intact. NECK: No JVD. CHEST: Bilateral lungs sound clear. HEART: Normal S1, S2. No murmur. ABDOMEN: Soft. Incision pain noticed. Bowel sounds positive. EXTREMITIES: No edema. Today, once the patient meets discharge criteria, the patient will be discharged to home. I already talked to the patient and the patient's family member and they agree to discharge to home. Also gave the patient the postop care instructions. I instructed the patient should come back to hospital ER if the patient develops any severe abdominal pain, nausea, vomiting, diarrhea, temperature or fever; they understand. Otherwise I will follow up the patient in 1 week. SHOBHA
== END 2016-06-25 19:32 | disposition home or self-care (01) | DRG 419 ==
LOC: ENRESERVTM → ENRESERVDT → C.EDB 08:51 → C.MSN 14:02
PROVIDERS: ADMIT Surgery; ATTEND Surgery
PROC: 0FT44ZZ Resection of Gallbladder, Percutaneous Endoscopic Approach (ICD-10-PCS; principal; 2016-06-25 12:45)
DX: K80.00 Calculus of gallbladder with acute cholecystitis without obstruction (principal); R42 Dizziness and giddiness; Z87.891 Personal history of nicotine dependence; Z79.899 Other long term (current) drug therapy

== ENCOUNTER → 2017-05-30 | Outpatient (CLI) | payer OTHER ==
[~2017-05-30] MED LIST changes: -OXYC-57 PO
--- NOTE | 2017-05-30 15:54 | MAMMOGRAPHY REPORT ---
BILATERAL DIGITAL DIAGNOSTIC MAMMOGRAM TOMOSYNTHESIS WITH CAD AND TARGETED LEFT ULTRASOUND: 05/30/2017 CLINICAL HISTORY: Short interval follow-up of left breast masses. Due for routine annual mammography . TECHNIQUE: Breast tomosynthesis in addition to standard 2D mammography was performed. Current study was also evaluated with a Computer Aided Detection (CAD) system. Bilateral CC and MLO 2-D and tomosy nthesis images were obtained. COMPARISON: Comparison is made to exams dated: 05/24/2016 ultrasound, 05/24/2016 mammogram, 11/22/2015 ultrasound, 11/22/2015 mammogram, 05/24/2015 mammogram, and 05/11/2015 mammogram - [facility]. BREAST COMPOSITION: The tissue of both breasts is heterogeneously dense, which may obscure small mas ses. FINDINGS: There are no suspicious masses, calcifications, or areas of architectural distortion noted in either breast mammographically. The previously seen circumscribed benign-appearing mass in the lef t 12:00 breast is decreased compared to the May 2016 exam, and was shown to represent a benign cy st on the prior ultrasound exams. Targeted ultrasound was performed of the area of the previously seen left breast masses for which fol low-up was recommended. In the left breast at 12:00, 1 cm from the nipple, again noted is an anechoi c circumscribed benign simple cyst measuring 8 x 10 mm, decreased compared to prior exams. Anterior to this cyst is an oval isoechoic parallel mass which measures 8 x 4 x 9 mm. This is stable in size and appearance dating back to the May 2015 exam where the mass measured 10 x 4 x 10 mm. Given th e benign morphology and 2 years of stability, the mass is considered benign. Multiple other adjacent benign cysts are seen within the left 12:00 breast. In the left breast at 11:00, 1 cm from the nipp le, again noted is a round circumscribed hypoechoic benign appearing 3 x 3 x 3 mm mass, also unchange d and considered benign given the morphology and stability. IMPRESSION: ACR BI-RADS CATEGORY 2: BENIGN, TARGETED ULTRASOUND ACR BI-RADS CATEGORY 2: BENIGN Isoechoic 9 mm mass in the left 12:00 breast and hypoechoic 3 mm mass in the left 11:[address] able compared to prior exams and considered benign given the morphology and stability. There is no m ammographic or targeted sonographic evidence of malignancy. A 1 year screening mammogram is recommend ed. The patient has been verbally notified of the results. Approximately 10% of breast cancers are not detected with mammography. A negative mammographic report should not delay biopsy if a clinically suggestive mass is present. Marjorie Jarrell M.D. ah/:05/30/2017 08:19:31 Director Of Retail Merchandising: Michelle MOMIN)(Mart[place]), [facility] letter sent: Normal 1/2 BI-RADS Code: ACR BI-RADS Category 2: Benign Ultrasound BI-RADS: ACR BI-RADS Category 2: Benign
== END | disposition home or self-care (01) ==
LOC: C.MAMM 07:55
PROVIDERS: ATTEND Obstetrics & Gynecology
DX: R92.8 Other abnormal and inconclusive findings on diagnostic imaging of breast (principal); N63.20 Unspecified lump in the left breast, unspecified quadrant